=== PATIENT | male | born 1990 | race Caucasian/White ===

== ENCOUNTER 2017-08-15 23:23 | Emergency (ER) | payer BC | END 2017-08-16 01:37 | disposition home or self-care (01) | LOC: M ED 23:23 | DX: Z59.1 Inadequate housing (principal); Z79.899 Other long term (current) drug therapy; F17.210 Nicotine dependence, cigarettes, uncomplicated | CPT/HCPCS: 99283 ==

== ENCOUNTER 2017-08-20 16:39 | Emergency (ER) | payer BC | END 2017-08-20 18:14 | disposition home or self-care (01) | LOC: M ED 16:39 | DX: F60.81 Narcissistic personality disorder (principal); F90.9 Attention-deficit hyperactivity disorder, unspecified type; F33.9 Major depressive disorder, recurrent, unspecified; F41.9 Anxiety disorder, unspecified; F17.210 Nicotine dependence, cigarettes, uncomplicated; Z79.899 Other long term (current) drug therapy | CPT/HCPCS: 99283 ==

== ENCOUNTER 2017-08-25 19:32 | Emergency (ER) | payer BC, SELFPAY | END 2017-08-25 20:43 | disposition left against medical advice (07) | LOC: M ED 19:32 | DX: Z53.29 Procedure and treatment not carried out because of patient's decision for other reasons (principal) ==

== ENCOUNTER 2017-08-25 21:49 | Emergency (ER) | payer BC ==
[2017-08-25] MEDS: busPIRone 5 MG TAB PO (22:59)
[2017-08-25] MEDS: QUEtiapine FUMARATE 50 MG TAB PO (22:59)
== END 2017-08-25 23:06 | disposition home or self-care (01) ==
LOC: M ED 21:49
DX: Z76.0 Encounter for issue of repeat prescription (principal); F41.9 Anxiety disorder, unspecified; Z79.899 Other long term (current) drug therapy; F17.210 Nicotine dependence, cigarettes, uncomplicated
CPT/HCPCS: 99282

== ENCOUNTER 2017-12-15 15:35 | Emergency (ER) | payer BC, MEDICAID, SELFPAY ==
[2017-12-15 16:16] LABS: HEMATOCRIT 44.8 % (42.0-52.0); HEMOGLOBIN 15.6 g/dl (13.5-17.5); MEAN CORPUSCULAR HEMOGLOBIN 31.5 pg (27.0-33.0); MEAN CORPUSCULAR HGB CONC 34.8 g/dl (32.0-36.5); MEAN CORPUSCULAR VOLUME 90.3 fl (80.0-96.0); PLATELET COUNT, AUTOMATED 201 10^3/uL (150-450); RED BLOOD COUNT 4.96 10^6/uL (4.30-6.10); RED CELL DISTRIBUTION WIDTH 12.5 % (11.5-14.5); WHITE BLOOD COUNT 8.9 10^3/uL (4.0-10.0)
[2017-12-15 16:45] LABS: AMPHETAMINES LEVEL URINE NEGATIVE (NEGATIVE); BARBITURATES URINE NEGATIVE (NEGATIVE); BENZODIAZEPINES URINE NEGATIVE (NEGATIVE); CANNABINOIDS URINE POSITIVE (NEGATIVE); COCAINE METABOLITE URINE NEGATIVE (NEGATIVE); METHADONE URINE NEGATIVE (NEGATIVE); OPIATES URINE NEGATIVE (NEGATIVE); PHENCYCLIDINE URINE NEGATIVE (NEGATIVE)
[2017-12-15 16:46] LABS: ALBUMIN 4.1 GM/DL (3.2-5.2); ALBUMIN/GLOBULIN RATIO 1.52 (1.00-1.93); ALKALINE PHOSPHATASE 94 U/L (45-117); ALT/SGPT 61 U/L (12-78); ANION GAP 8 MEQ/L (8-16); AST/SGOT 39 U/L (7-37); BILIRUBIN,DIRECT 0.1 MG/DL (0.0-0.2); BILIRUBIN,TOTAL 0.5 MG/DL (0.2-1.0); BLOOD UREA NITROGEN 20 MG/DL (7-18); CALCIUM LEVEL 8.6 MG/DL (8.5-10.1); CARBON DIOXIDE LEVEL 28 MEQ/L (21-32); CHLORIDE LEVEL 106 MEQ/L (98-107); CREATININE FOR GFR 0.91 MG/DL (0.70-1.30); ETHYL ALCOHOL (ETHANOL) < 0.003 % (0.000-0.010); GLOMERULAR FILTRATION RATE > 60.0 (>60); GLUCOSE, FASTING 95 MG/DL (70-100); POTASSIUM SERUM 3.9 MEQ/L (3.5-5.1); SALICYLATE LEVEL 2.3 MG/DL (5.0-30.0); SODIUM LEVEL 142 MEQ/L (136-145); THYROID STIMULATING HORMONE 0.916 uIU/ML (0.358-3.740); TOTAL PROTEIN 6.8 GM/DL (6.4-8.2)
[2017-12-15 16:49] LABS: ACETAMINOPHEN LEVEL < 2.0 UG/ML (10.0-30.0)
== END 2017-12-15 18:02 | disposition home or self-care (01) ==
LOC: M ED 15:35
DX: F60.81 Narcissistic personality disorder (principal); F12.10 Cannabis abuse, uncomplicated; F17.210 Nicotine dependence, cigarettes, uncomplicated
CPT/HCPCS: 80320; G0480

== ENCOUNTER → 2020-01-28 | Emergency (ER) | payer BC, MEDICAID, OTHER ==
[~2020-01-28] MED LIST: BUSP10TA PO; BUSP15TA47 PO; HYDR1CRE93 TOP; KETOROLAC 30 MG/ML 1ML VIAL As Ordered ONE; LITH300C PO; METOCLOPRAMIDE INJ 10MG/2ML VIAL (J2765 PER 1) As Ordered ONE; SERO1TAB2 PO; SERO50TA PO; TRIA1CR80 TOP; ZYPR5TAB2 PO; diphenhydrAMINE 50MG/ML VIAL (J1200) As Ordered ONE
== END | disposition home or self-care (01) ==
LOC: M ED 22:30
DX: F43.10 Post-traumatic stress disorder, unspecified (principal); F25.9 Schizoaffective disorder, unspecified; F17.200 Nicotine dependence, unspecified, uncomplicated; F12.90 Cannabis use, unspecified, uncomplicated; Z59.0 Homelessness

== ENCOUNTER → 2020-02-02 | Emergency (ER) | payer BC ==
[~2020-02-02] MED LIST changes: -KETOROLAC 30 MG/ML 1ML VIAL As Ordered ONE; -METOCLOPRAMIDE INJ 10MG/2ML VIAL (J2765 PER 1) As Ordered ONE; -diphenhydrAMINE 50MG/ML VIAL (J1200) As Ordered ONE
== END | disposition left against medical advice (07) ==
LOC: M ED 02-01 02:05
DX: Z53.21 Procedure and treatment not carried out due to patient leaving prior to being seen by health care provider (principal); Z59.0 Homelessness

== ENCOUNTER 2020-02-15 04:38 | Emergency (ER) | payer OTHER, MEDICAID ==
[~2020-02-15 04:38] MED LIST changes: +ISOVUE-370 76% 100ML VIAL ONE; -LITH300C PO; -TRIA1CR80 TOP; -ZYPR5TAB2 PO
[2020-03-30 13:34] LABS: BASO % 0.2 % (0.0-1.0); EOS # 0.2 10^3/uL (0.0-0.5); EOS % 1.6 % (0.0-3.0); HEMATOCRIT 42.9 % (42.0-52.0); HEMOGLOBIN 14.9 g/dl (13.5-17.5); LYMPH # 3.1 10^3/uL (1.5-5.0); LYMPH % 28.4 % (24.0-44.0); MEAN CORPUSCULAR HGB CONC 34.7 g/dl (32.0-36.5); MEAN CORPUSCULAR VOLUME 92.3 fl (80.0-96.0); MONO # 0.8 10^3/uL (0.0-0.8); MONO % 6.9 % (0.0-5.0); NEUTROPHILS # 6.9 10^3/uL (1.5-8.5); NEUTROPHILS % 62.6 % (36.0-66.0); PLATELET COUNT, AUTOMATED 195 10^3/uL (150-450); RED BLOOD COUNT 4.65 10^6/uL (4.30-6.10)
== END 2020-02-15 05:56 | disposition home or self-care (01) ==
LOC: M ED 04:38
DX: S10.93XA Contusion of unspecified part of neck, initial encounter (principal); Y04.8XXA Assault by other bodily force, initial encounter; Y92.89 Other specified places as the place of occurrence of the external cause; F25.9 Schizoaffective disorder, unspecified; F17.200 Nicotine dependence, unspecified, uncomplicated
CPT/HCPCS: 36415; 70491; 80048; 85025; 99283; Q9967

== ENCOUNTER 2020-02-22 23:09 | Emergency (ER) | payer OTHER, MEDICAID ==
[~2020-02-22] VITALS: Ht 188 cm; Wt 86.4 kg
[~2020-02-22 23:09] MED LIST changes: -ISOVUE-370 76% 100ML VIAL ONE
[2020-02-22 23:11] VITALS: BP 115/58
[2020-02-22] MEDS ORDERED: ZYPR5TAB2 PO (23:15)
[2020-02-22] MEDS ORDERED: LITH300C PO (23:15)
[2020-02-23] MEDS ORDERED: methylPREDNISolone 125MG 2ML VIAL IM ONE
[2020-02-23] MEDS ORDERED: TRIA1CR80 TOP (00:04)
== END 2020-02-23 01:13 | disposition home or self-care (01) ==
LOC: M ED 23:09 → EDBD 23:09 → M ED 02-23 01:13
DX: Z76.5 Malingerer [conscious simulation] (principal); Z79.899 Other long term (current) drug therapy